=== PATIENT | female | born 1990 | race Caucasian/White ===

== ENCOUNTER → 2025-01-23 07:00 | Outpatient (CLI) | payer OTHER, SELFPAY ==
--- NOTE | 2025-01-23 07:03 | DI.US.S_ITS ---
PROCEDURE: US PELVIC COMPLETE INDICATIONS: ABDOMINAL PAIN/POLYCYSTIC OVARIAN SYNDROME TECHNIQUE: Real-time scanning was performed of the pelvic organs, with image documentation. Additional endovaginal scanning was necessary due to incomplete visualization of the adnexal and endometrial structures by transabdominal scanning. COMPARISON: None. FINDINGS: Uterus: Uterus is anteverted and normal in size at 7.2 x 4.8 x 4.1 cm. The myometrium is heterogeneous. The endometrium measures 5.7 mm combined thickness. Ovaries: The right ovary measures 4.0 x 3.2 x 1.7 cm, with a calculated ovarian volume of 7.5 cc. The left ovary measures 2.8 x 1.8 x 2.1 cm, with a calculated ovarian volume of 5.3 cc. The ovaries have a normal sonographic appearance. Peripheral follicles are noted bilaterally. No adnexal masses are seen. Other: No pathologic free abdominal or pelvic fluid. IMPRESSION: Multiple peripheral ovarian follicles are noted bilaterally, which do not appear to meet the cutoff of 12, however concerning for PCOS given history. Otherwise, normal appearance of the uterus and ovaries. We strive to produce accurate, complete, and clear reports of imaging services. To assist us in improving patient care, this report was composed using standard report templates and voice recognition software. Therefore, it may contain abnormal punctuation, insertions and/or omissions. Occasional wrong-word or sound-alike substitutions may occur. Though we review the report and make efforts to correct it, we do recommend that the report be read carefully in proper context to recognize any text inaccuracies. Dictated by: Nik Marquez M.D. on 01/23/2025 at 11:40 Approved by: Nik Marquez M.D. on 01/23/2025 at 11:44
--- NOTE | 2025-01-23 07:03 | DI.US.S_ITS ---
PROCEDURE: US ABDOMEN COMPLETE INDICATIONS: ABDOMINAL PAIN/POLYCYSTIC OVARIAN SYNDROME TECHNIQUE: Real-time scanning was performed of the abdominal and retroperitoneal organs, with image documentation. COMPARISON: None. FINDINGS: Liver: Liver is normal in size and mildly increased in echogenicity. Gallbladder: Normal appearance. No gallstones or gallbladder wall thickening. Biliary ducts: Intrahepatic bile ducts are non-dilated. Common bile duct is not well seen.-7 mm or less in diameter, or 10 mm or less post-cholecystectomy. Pancreas: Visualized portions of the pancreas are sonographically normal. Body and tail are not well seen. Spleen: Spleen is normal in size and homogeneous in echotexture. Hypoechoic focus at the posterior spleen edge measuring 2.4 x 2.6 x 1.6 centimeters. Kidneys: Kidneys are normal in size and echotexture. Right kidney measures 11.3 cm long; left kidney measures 10.7 cm long. No hydronephrosis or nephrolithiasis. No solid masses. Aorta: Visualized aorta is normal in caliber at less than 3 cm. Iliacs: Proximal common iliac arteries are normal in caliber at less than 2.5 cm. IVC: Intrahepatic inferior vena cava is patent. Miscellaneous: No free abdominal fluid. IMPRESSION: Liver is mildly increased in echogenicity, most consistent with mild hepatic steatosis. Hypoechoic focus at the posterior edge of the spleen measuring 2.6 centimeters, likely a splenule. Recommend follow-up ultrasound in 3-6 months to assess stability. Dictated by: Nik Marquez M.D. on 01/23/2025 at 11:38 Approved by: Nik Marquez M.D. on 01/23/2025 at 11:40
== END ==
LOC: US 07:02
PROVIDERS: PCP Family Medicine; Referring Provider Family Medicine; Visit Provider Family Medicine
DX: E28.2 Polycystic ovarian syndrome (principal)
CPT/HCPCS: 76700; 76830; 76856